=== PATIENT | male | born 1990 | race Caucasian/White ===

== ENCOUNTER 2019-02-10 21:22 | Emergency (ER) | payer BC ==
[~2019-02-10] VITALS: Ht 188 cm; Wt 157.0 kg
[2019-02-10] MEDS ORDERED: TETanus/Pertussis (Acell)/Diphther VAC/PF (Tdap-Adult) 0.5ml syringe IMVAC ONE (21:45)
[2019-02-10] MEDS ORDERED: CEPH250T PO (22:56)
[2019-02-11 01:42] VITALS: BP 137/74
== END 2019-02-10 23:55 | disposition home or self-care (01) ==
LOC: ER 21:23
DX: S91.332A Puncture wound without foreign body, left foot, initial encounter (principal); Z79.2 Long term (current) use of antibiotics; W45.0XXA Nail entering through skin, initial encounter; Y93.89 Activity, other specified; Y92.89 Other specified places as the place of occurrence of the external cause; Y99.8 Other external cause status
CPT/HCPCS: 90471; 99283

== ENCOUNTER 2021-06-06 21:03 | Emergency (ER) | payer BC, OTHER ==
[~2021-06-06] VITALS: Ht 188 cm; Wt 145.0 kg
[2021-06-06 21:08] VITALS: BP 165/88
== END 2021-06-06 22:57 | disposition home or self-care (01) ==
LOC: ER 21:04
DX: R05.9 Cough, unspecified (principal); R07.9 Chest pain, unspecified
CPT/HCPCS: 71046; 99283